=== PATIENT | female | born 1995 | race Caucasian/White ===

== ENCOUNTER 2023-11-01 20:29 | Emergency (ER) | payer OTHER, SELFPAY ==
[2023-11-01 20:46] VITALS: BP 114/75; PULSE 80; RESP 16; TEMP 36.7; O2SAT 100; BMI 25.8
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
== END 2023-11-01 22:21 | disposition home or self-care (01) ==
LOC: ED 22:22
PROVIDERS: Emergency Provider Emergency Medicine Emergency Medical Services; PCP Physician Assistant Medical
DX: S09.90XA Unspecified injury of head, initial encounter (principal); Y33.XXXA Other specified events, undetermined intent, initial encounter; Y99.0 Civilian activity done for income or pay
CPT/HCPCS: 99283; 99284